=== PATIENT | female | born 1985 | race Caucasian/White ===

== ENCOUNTER → 2023-05-01 | Outpatient (CLI) | payer OTHER ==
--- NOTE | 2023-05-04 08:32 | MM ---
Reason for Exam: Screening (asymptomatic). Baseline mammogram. Patient History: Menarche at age 15. First Full-Term at age 25. Premenopausal. Patient has history of breast feeding. Paternal aunt had breast cancer, age 40. Maternal cousin had breast cancer at or over age 50. Last menstrual period: 04/22/2023 Risk Values: Danielle 5 year model risk: 0.3%. NCI Lifetime model risk: 9.2%. Prior Study Comparison: Patient's first Mammogram. Tissue Density: The breast tissue is extremely dense which could obscure a lesion on mammography. Findings: Analyzed By CAD. Pattern appears symmetrical. Benign punctate calcifications within the left breast. No suspicious groups of microcalcifications, spiculated or lobular masses, architectural distortion or other secondary signs of malignancy are mammographically apparent.Pattern appears symmetrical. Benign punctate calcification is within the left breast. No suspicious groups of microcalcifications, spiculated or lobular masses, architectural distortion or other secondary signs of malignancy are mammographically apparent. Overall Assessment: Benign, BI-RAD 2 Management: Screening Mammogram of both breasts in 1 year. A negative mammogram report should not preclude additional follow up of suspicious palpable abnormalities. Patient should continue monthly self breast exam. A clinical breast exam by your physician is recommended on an annual basis and results should be correlated with mammographic findings. Electronically signed and approved by: Justin Steward D.O. Radiologis
== END | disposition home or self-care (01) ==
LOC: RADMAMWWP 08:10
PROVIDERS: ATTEND Family Medicine
DX: Z12.31 Encounter for screening mammogram for malignant neoplasm of breast (principal); Z80.3 Family history of malignant neoplasm of breast
CPT/HCPCS: 77063; 77067

== ENCOUNTER → 2024-03-31 | Outpatient (CLI) | payer OTHER ==
[2024-03-31 09:23] VITALS: BP 124/78; PULSE 53; RESP 16; TEMP 98.4
--- NOTE | 2024-03-31 10:33 | P.GSCN ---
History of Present Illness Consult date: 03/31/24 Reason for Consult: high risk breast cancer Requesting physician: Dot Koehler History of present illness: Jaiden is a 38 year old female seen in consultation for Dr. Koehler regarding an high risk of breast cancer. Her last mammogram was on 05-01-23 and was BIRAD 2. This was personally reviewed and interpreted. She had genetic testing performed which did not show any clinically significant mutation. Erin marcelino her breast cancer risk score from the [facility] hereditary profile was 21% lifetime risk. She has never had any surgery on her breast. She has not had any lumps masses or nodules of concern that she has noted. She is not complaining of any nipple discharge or skin changes. Danielle 5 year risk: 0.3% life time risk: 9.2% Tyrer-Cruzick risk: 15.4% lifetime My risk hereditary cancer test: 21% percent lifetime risk, 0.7% 5-year breast cancer risk caffiene: occasional nicotine: none now used to somke for 14 years 1 PPD BCP: used for about 19 years, recently stopped and now considering getting chocolate: occasional Family History: paternal aunt: of breast cancer at 39 Hormonal History: menarche: 14 , breast fed: yes, age at first : 25 periods regular did have some spoting and follwoed by professor of radiology Surgical History: wisdom teeth Medical History: high cholesterol Social History: nicotine: stopped 7 years ago, used to smoke 1 PPD alcohol: none drugs: none Review of Systems - Constitutional Denies fever, Denies weight loss - EENT Eyes: denies blurred vision Ears: deny: decreased hearing, tinnitus Ears, nose, mouth and throat: Denies dysphagia - Breasts bilateral: as per HPI - Cardiovascular Denies chest pain, Denies shortness of breath - Respiratory Denies cough, Denies 7 - Gastrointestinal Reports as per HPI - Genitourinary Genitourinary: Denies dysuria, Denies hematuria Menstruation: Reports as per HPI, Reports period normal - Musculoskeletal Musculoskeleta Comment(s): She plays hockey and works out so normal muscle pain Reports as per HPI - Integumentary Denies rash, Denies unusual bruising - Neurological Denies headaches, Denies syncope - Psychiatric Reports as per HPI - Endocrine Reports as per HPI - Hematologic/Lymphatic Denies easy bleeding, Denies easy bruising - Allergic/Immunologic Reports as per HPI, Reports seasonal allergies Past Medical History History of Any Multi-Drug Resistant Organisms: None Reported Smoking Status: Former smoker Medications and Allergies Allergies Allergy/AdvReac Type Severity Reaction Status Date / Time amoxicillin Allergy Unknown Unknown Verified 03/31/24 09:20 azithromycin Allergy Unknown Verified 03/31/24 09:20 Surgical - Exam Vital Signs Temp Pulse Resp BP Pulse Ox 98.4 F 53 L 16 124/78 100 03/31/24 09:20 03/31/24 09:20 03/31/24 09:20 03/31/24 09:20 03/31/24 09:20 - General no distress - Eyes normal ocular movement - ENT no hearing loss - Neck trachea midline - Respiratory normal respiratory effort, clear to auscultation - Cardiovascular Rhythm: regular Heart Sounds: normal: S1, S2 - Abdomen Abdomen: soft, non tender, no guarding, no rigid, no rebound - Integumentary normal turgor - Neurologic no disoriented, no combative - Musculoskeletal normal gait - Psychiatric oriented to time, oriented to person, oriented to place, speech is normal, memory intact Breast Exam: BRA: 34C Inspection: Right breast slightly larger than left breast, bilateral grade 2 p tosis Palpation: Right breast: Multi positional exam dense breast tissue, fibrocystic changes, no discrete dominant masses or nodules of concern Right axilla: No adenopathy of concern Left breast: Multi positional exam dense breast tissue, fibrocystic changes, no discrete dominant masses or nodules of concern Left axilla: No adenopathy of concern Results Bilateral mammogram 05-01-2023 BI-RADS 2 extremely dense breast this was personally reviewed Genetic testing is negative for any clinically significant mutation, lifetime risk of breast cancer 21% Assessment and Plan Assessment: Impression: High risk for breast cancer, we have discussed in detail different approaches which would include: 1. Close surveillance 2. Chemoprophylaxis, we have discussed hormone blocking agents and at this time the patient has been given the option of seeing a medical oncologist and would prefer not to do this and has declined 3. Surgical intervention which would be bilateral mastectomies, and at this time we are not recommending this approach Talks about close surveillance being every 6-month evaluation with mammogram alternating with MRI. If she is unable to get the MRI we would consider bilateral whole breast ultrasounds. If she gets in the interim then most likely radiographic evaluation of the breast with mammogram or MRI with contrast would be deferred until after the . To note any changes in her breast during the which were of concern radiographic evaluation would be necessary. The patient is interested in having another child, and is considering getting in the near future. Plan: 1. Close surveillance 2. Bilateral mammogram at this time her last mammogram was approximately 1 year ago 3. Alternating mammogram and MRI if insurance will allow this 4. If insurance will not allow the MRI then would consider ultrasound at the 6- month interval 5. Appointment with genetic counselor to see which of the lifetime risks is the most accurate, the lifetime risks vary from 9.2% with a Danielle model 21% with a genetic testing model. CC: Jaiden Monsalve
== END ==
LOC: WWCWWP 09:05
PROVIDERS: ATTEND Surgery
DX: R92.8 Other abnormal and inconclusive findings on diagnostic imaging of breast (principal); Z87.891 Personal history of nicotine dependence; Z80.3 Family history of malignant neoplasm of breast; Z88.1 Allergy status to other antibiotic agents; Z88.0 Allergy status to penicillin

== ENCOUNTER → 2024-05-02 | Outpatient (CLI) | payer OTHER ==
--- NOTE | 2024-05-08 17:47 | MM ---
Reason for Exam: Screening (asymptomatic). Last screening mammogram was performed 12 month(s) ago. Patient History: Menarche at age 15. First Full-Term at age 25. Premenopausal. Patient has history of breast feeding. Paternal aunt had breast cancer, age 40. Maternal cousin had breast cancer at or over age 50. Risk Values: Danielle 5 year model risk: 0.3%. NCI Lifetime model risk: 9.2%. Prior Study Comparison: 05/01/2023 Bilateral MG 3D screening mammo w/cad, [facility]. Tissue Density: The breasts are heterogeneously dense, which may obscure small masses. Findings: Analyzed By CAD. The pattern is symmetrical. No significant interval change No suspicious groups of microcalcifications, spiculated or lobular masses, architectural distortion or other secondary signs of malignancy are mammographically apparent. Overall Assessment: Benign, BI-RAD 2 Management: Screening Mammogram of both breasts in 1 year. A negative mammogram report should not preclude additional follow up of suspicious palpable abnormalities. Patient should continue monthly self breast exam. A clinical breast exam by your physician is recommended on an annual basis and results should be correlated with mammographic findings. Note on Danielle scores and lifetime risk: 1. A Danielle score greater than 3% is considered moderate risk. If this is the case, consider specialist referral to assess eligibility for a risk reducing agent. 2. If overall lifetime risk for the development of breast cancer is 20% or higher, the patient may qualify for future screening with alternating mammogram and breast MRI. [facility], , 05/08/2024 5:44 PM. Electronically signed and approved by: Justin Steward D.O. Radiologis
== END | disposition home or self-care (01) ==
LOC: RADMAMWWP 09:31
PROVIDERS: ATTEND Surgery
DX: Z12.31 Encounter for screening mammogram for malignant neoplasm of breast (principal); R92.333 Mammographic heterogeneous density, bilateral breasts; Z80.3 Family history of malignant neoplasm of breast
CPT/HCPCS: 77063; 77067

== ENCOUNTER → 2024-05-12 | Outpatient (CLI) | payer OTHER ==
[2024-05-12 14:46] VITALS: BP 132/82; PULSE 80; RESP 16; TEMP 97.9
--- NOTE | 2024-05-12 14:57 | P.PN ---
Subjective Progress Note Date: 05/12/24 Principal diagnosis: high risk breast cancer History of Present Illness Consult date: 05-12-24 Reason for Consult: high risk breast cancer Requesting physician: Dot Koehler History of present illness: Jaiden is a 38 year old female seen in consultation for Dr. Koehler regarding an high risk of breast cancer. Her last mammogram was on 05-01-23 and was BIRAD 2. This was personally reviewed and interpreted. She had genetic testing performed which did not show any clinically significant mutation. However her breast cancer risk score from the [facility] hereditary profile was 21% lifetime risk. She has never had any surgery on her breast. She has not had any lumps masses or nodules of concern that she has noted. She is not complaining of any nipple discharge or skin changes. Bilateral mammogram on 05-02-24 BIRAD 2. Dense breast tissue BI-RADS 2 She has an appointment with a uncrater on May 31, and they will help us evaluate her true risk Danielle 5 year risk: 0.3% life time risk: 9.2% Lydiaer-Griseldack risk: 15.4% lifetime My risk hereditary cancer test: 21% percent lifetime risk, 0.7% 5-year breast cancer risk caffiene: occasional nicotine: none now used to somke for 14 years 1 PPD BCP: used for about 19 years, recently stopped and now considering getting chocolate: occasional Family History: paternal aunt: of breast cancer at 39 Hormonal History: menarche: 14 , breast fed: yes, age at first : 25 periods regular did have some spoting and followed by nurse gynecology Surgical History: wisdom teeth Medical History: high cholesterol Social History: nicotine: stopped 7 years ago, used to smoke 1 PPD alcohol: none drugs: none Review of Systems - Constitutional Denies fever, Denies weight loss - EENT Eyes: denies blurred vision Ears: deny: decreased hearing, tinnitus Ears, nose, mouth and throat: Denies dysphagia - Breasts bilateral: as per HPI - Cardiovascular Denies chest pain, Denies shortness of breath - Respiratory Denies cough, Denies 7 - Gastrointestinal Reports as per HPI - Genitourinary Genitourinary: Denies dysuria, Denies hematuria Menstruation: Reports as per HPI, Reports period normal - Musculoskeletal Musculoskeleta Comment(s): She plays hockey and works out so normal muscle pain Reports as per HPI - Integumentary Denies rash, Denies unusual bruising - Neurological Denies headaches, Denies syncope - Psychiatric Reports as per HPI - Endocrine Reports as per HPI - Hematologic/Lymphatic Denies easy bleeding, Denies easy bruising - Allergic/Immunologic Reports as per HPI, Reports seasonal allergies Past Medical History History of Any Multi-Drug Resistant Organisms: None Reported Smoking Status: Former smoker Medications and Allergies Allergies Allergy/AdvReac Type Severity Reaction Status Date / Time amoxicillin Allergy Unknown Unknown Verified 03/31/24 09:20 azithromycin Allergy Unknown Verified 03/31/24 09:20 Examination on visit of 03-31-24 Results Bilateral mammogram 05-01-2023 BI-RADS 2 extremely dense breast this was personally reviewed Genetic testing is negative for any clinically significant mutation, lifetime risk of breast cancer 21% Assessment and Plan Assessment: Impression: High risk for breast cancer, we have discussed in detail different approaches which would include: 1. Close surveillance 2. Chemoprophylaxis, we have discussed hormone blocking agents and at this time the patient has been given the option of seeing a medical oncologist and would prefer not to do this and has declined 3. Surgical intervention which would be bilateral mastectomies, and at this time we are not recommending this approach Talks about close surveillance being every 6-month evaluation with mammogram alternating with MRI. If she is unable to get the MRI we would consider bilateral whole breast ultrasounds. If she gets in the interim then most likely radiographic evaluation of the breast with mammogram or MRI with contrast would be deferred until after the . To note any changes in her breast during the which were of concern radiographic evaluation would be necessary. The patient is interested in having another child, and is considering getting in the near future. Plan: 1. Close surveillance 2. Bilateral mammogram at this time done on 05-02-24 her last mammogram was approximately 1 year ago 3. Alternating mammogram and MRI if insurance will allow this 4. If insurance will not allow the MRI then would consider ultrasound at the 6- month interval 5. Appointment with genetic counselor May 31, to see which of the lifetime risks is the most accurate, the lifetime risks vary from 9.2% with a Danielle model 21% with a genetic testing model. 6. Her son in 6 months with appointment at that time CC: Jaiden Monsalve Additional CC's: Dot Koehler Objective - Vital Signs Vital signs: Intake & Output 05/11/24 05/12/24 05/12/24 18:59 06:59 18:59 Weight 58.967 kg - Constitutional General appearance: Present: cooperative - EENT Eyes: Present: EOMI ENT: Present: hearing grossly normal - Neck Neck: Present: normal ROM - Respiratory Respiratory: bilateral: CTA - Cardiovascular Rhythm: regular Heart sounds: normal: S1, S2 - Integumentary Integumentary: Present: normal turgor - Musculoskeletal Musculoskeletal: Present: gait normal - Psychiatric Psychiatric: Present: A&O x's 3, appropriate affect, intact judgment & insight - Additional findings Additional findings: Breast Exam: BRA: 34C Inspection: Right breast slightly larger than left breast, bilateral grade 2 ptosis Palpation: Right breast: Multi positional exam dense breast tissue, fibrocystic changes, no discrete dominant masses or nodules of concern Right axilla: No adenopathy of concern Left breast: Multi positional exam dense breast tissue, fibrocystic changes, no discrete dominant masses or nodules of concern Left axilla: No adenopathy of concern Assessment and Plan Assessment: Impression: High risk for breast cancer, we have discussed in detail different approaches which would include: 1. Close surveillance 2. Chemoprophylaxis, we have discussed hormone blocking agents and at this time the patient has been given the option of seeing a medical oncologist and would prefer not to do this and has declined 3. Surgical intervention which would be bilateral mastectomies, and at this time we are not recommending this approach Talks about close surveillance being every 6-month evaluation with mammogram alternating with MRI. If she is unable to get the MRI we would consider bilateral whole breast ultrasounds. If she gets in the interim then most likely radiographic evaluation of the breast with mammogram or MRI with contrast would be deferred until after the . To note any changes in her breast during the which were of concern radiographic evaluation would be necessary. The patient is interested in having another child, and is considering getting in the near future. Plan: 1. Close surveillance 2. Bilateral mammogram 05-02-24 BIRAD 2, repeat in 1 year 3. Alternating mammogram and MRI if insurance will allow this 4. If insurance will not allow the MRI then would consider ultrasound at the 6- month interval 5. Appointment with genetic counselor to see which of the lifetime risks is the most accurate, the lifetime risks vary from 9.2% with a Danielle model 21% with a genetic testing model. CC: Jaiden Monsalve
== END ==
LOC: WWCWWP 14:30
PROVIDERS: ATTEND Surgery
DX: Z12.31 Encounter for screening mammogram for malignant neoplasm of breast (principal); Z15.01 Genetic susceptibility to malignant neoplasm of breast; R92.8 Other abnormal and inconclusive findings on diagnostic imaging of breast; R92.30 Dense breasts, unspecified; Z80.3 Family history of malignant neoplasm of breast; Z88.1 Allergy status to other antibiotic agents; Z88.0 Allergy status to penicillin; Z87.891 Personal history of nicotine dependence